=== PATIENT | male | born 2000 | race Caucasian/White ===

== ENCOUNTER 2024-02-17 04:35 | Emergency (ER) | payer SELFPAY ==
[~2024-02-17] VITALS: Ht 170.2 cm; Wt 99.8 kg
[2024-02-17 04:48] VITALS: BP 132/58; PULSE 101; RESP 20; TEMP 97.6; O2SAT 99
[2024-02-17 04:51] VITALS: BP 132/58; PULSE 101; RESP 20; TEMP 97.6; O2SAT 99
== END 2024-02-17 05:09 ==
LOC: MED 04:35
DX: Z04.1 Encounter for examination and observation following transport accident (principal); V89.2XXA Person injured in unspecified motor-vehicle accident, traffic, initial encounter; Y93.89 Activity, other specified; Y92.411 Interstate highway as the place of occurrence of the external cause; Y99.8 Other external cause status
CPT/HCPCS: 99283